=== PATIENT | male | born 1985 | race African-American/Black ===

== ENCOUNTER 2017-10-17 14:19 | Emergency (ER) | payer OTHER ==
[~2017-10-17] VITALS: Ht 180.3 cm; Wt 90.0 kg
[~2017-10-17 14:19] MED LIST: BACT800T5 PO; DOXY100T PO; NAPR220T95 PO; PERC5TAB12 PO
[2017-10-17 14:53] VITALS: BP 152/91; PULSE 64; RESP 18; TEMP 98; O2SAT 99
--- NOTE | 2017-10-17 17:33 | PD ---
HPI Chief Complaint: GI Complaint Time Seen by Provider: 17:07 Travel History International Travel<30 days: No Contact w/Intl Traveler<30days: No Traveled to known affect area: No History of Present Illness HPI The patient is a 31-year-old -[place] male who presents to the emergency department with perianal pain. The patient states he has had some perianal pain her last several days, had difficulty moving his bowels several days ago, then had a loose stool and then a hard stool this morning. The patient states after he passed a hard stool this morning there is a small amount of bright red blood on the tissue paper. The pain is intermittent and has currently resolved. The patient does note a history of external hemorrhoids , denies any history of anal fissure. He denies any anal sex or penetration. He denies any nausea, vomiting, or anterior abdominal pain. He denies any associated change in appetite or weight loss. Symptoms are mild to moderate. PFSH Past Medical History Diminished Hearing: No Kidney Stones: Yes Past Surgical History Pacemaker: No Social History Alcohol Use: Yes (OCC) Tobacco Use: Yes (1 PPD) Substance Use: No Allergies-Medications (Allergen,Severity, Reaction): Coded Allergies: No Known Allergies (Verified , 12/07/14) Reported Meds & Prescriptions Reported Meds & Active Scripts Active Review of Systems Except as stated in HPI: all other systems reviewed are Neg General / Constitutional: No: Fever Gastrointestinal: Positive: Hematochezia, Constipation, No: Nausea, Vomiting, Diarrhea, Abdominal Pain Skin: No Rash Physical Exam Narrative GENERAL: Awake, alert, pleasant 31-year-old male who appears his stated age and is in no acute respiratory distress. SKIN: Focused skin assessment warm/dry. HEAD: Atraumatic. Normocephalic. EYES: No injection or drainage. GASTROINTESTINAL: Abdomen soft, non-tender, nondistended. No rebound tenderness , guarding, rigidity. Rectal: No visible external hemorrhoids. No visible anal fissure. Digital rectal exam reveals no gross blood or impaction. Normal exam. MUSCULOSKELETAL: No obvious deformities. No clubbing. No cyanosis. No edema. NEUROLOGICAL: Awake and alert. No obvious cranial nerve deficits. Motor grossly within normal limits. Normal speech. PSYCHIATRIC: Appropriate mood and affect; insight and judgment normal. Data Data Last Documented VS Vital Signs Date Time Temp Pulse Resp B/P (MAP) Pulse Ox O2 Delivery O2 Flow Rate FiO2 10/17/17 14:53 98.0 64 18 152/91 (111) 99 Orders Orders Abdomen, Flat & Upright (10/17/17 ) [facility] Medical Decision Making Medical Screen Exam Complete: Yes Emergency Medical Condition: Yes Medical Record Reviewed: Yes Interpretation(s) Last Impressions Abdomen X-Ray 10/17/17 0000 Signed Impressions: Service Date/Time: Tuesday, October 17, 2017 17:35 - CONCLUSION: Normal examination for a patient of this age. Mian Govea MD Differential Diagnosis Differential diagnosis includes proctitis, anal fissure, internal hemorrhoids, external hemorrhoids, diverticulosis, constipation, colitis. Narrative Course Digital rectal exam was unremarkable, no evidence of anal fissure or external hemorrhoid. Therefore, x-ray was ordered to rule out obstruction. X-rays unremarkable, no foreign body, no evidence of obstruction. The patient will be placed on Colace and Anusol as needed. He is advised to follow-up with a primary physician. If symptoms persist he may benefit from sigmoidoscopy. Diagnosis Primary Impression: Anal or rectal pain Patient Instructions: General Instructions Additional Instructions: Medications as directed. Follow-up with your primary physician. Return if symptoms worsen or progress. Drink plenty fluids. Med/Other Pt SpecificInfo: Prescription(s) given Scripts Docusate Sodium (Colace) 100 Mg Capsule 100 MG PO BID for Prevent Constipation for 10 Days, #20 CAP 0 Refills Prov: Samy Prieto MD 10/17/17 Hydrocortisone Rectal (Anusol-Hc Rectal) 2.5% Cream 1 APPLIC RECTAL Q6H Y for ITCHING/INFLAMMATION, #30 GM 0 Refills Prov: Samy Prieto MD 10/17/17 Disposition: 01 DISCHARGE HOME Condition: Stable Samy Prieto MD Oct 17, 2017 17:33
--- NOTE | 2017-10-17 17:45 | RADRPT ---
EXAM DATE/TIME: 10/17/2017 17:35 [facility] COMPARISON: No previous studies available for comparison. INDICATIONS : Evaluate for obstruction MEDICAL HISTORY : None. SURGICAL HISTORY : None. ENCOUNTER: Initial ACUITY: 1 week PAIN SCORE: 0/10 LOCATION: Abdomen FINDINGS: Supine and upright views of the abdomen were performed. The abdominal bowel gas pattern is normal. No air fluid levels are seen. No abnormal masses, calcifications, or organomegaly is seen. The visu alized lower lungs are clear. No evidence of free intraperitoneal gas. The osseous structures are u nremarkable. CONCLUSION: Normal examination for a patient of this age. Mian Govea MD on October 17, 2017 at 17:41 Board Certified Radiologist. This report was verified electronically.
[2017-10-17] MEDS ORDERED: COLA100C5 PO (18:03)
[2017-10-17] MEDS ORDERED: HYDR2.5%T RECTAL (18:03)
== END 2017-10-17 18:16 | disposition home or self-care (01) ==
LOC: NEPD 14:19
DX: K62.89 Other specified diseases of anus and rectum (principal)
CPT/HCPCS: 74019; 99284